=== PATIENT | female | born 1955 | race African-American/Black ===

== ENCOUNTER → 2016-11-02 | Outpatient (CLI) | payer MEDICARE, MEDICAID ==
[~2016-11-02] MED LIST: AMANTADINE100 MG PO; AMBIEN5 MG PO; ARTANE2 MG PO; ATENOLOL50 MG PO; CLARITIN10 MG PO; CLOPIDOGREL; DARVOCET-N-101 UDTAB PO; FAMVIR 500500 MG/TAB PO; FLEXERIL 1010 MG/TAB PO; HCTZ 25MG TAB25 MG PO; HCTZ 25MG25 MG PO; KCL 20 MEQ; KLONOPIN 1MG1 MG PO; KLONOPIN0.5 MG PO; KLOR-CON M2020 MEQ PO; LEVOXYL0.025 MG; LISINOPRIL; LISINOPRIL10 MG PO; MASON NATURAL1000 MG; NAPROSYN 2250 MG/TAB PO; NAPROXEN 3375 MG/TAB PO; NAVANE; NAVANE1 MG PO; NAVANE5 MG PO; NORCO 325 MG-51 TAB PO; PERCOCET 325 MG1 TA2 PO; PLAVIX 75MG TAB75 MG PO; POTASSIUM CL 220 MEQ PO; POTASSIUM20 MEQ PO; PREDNISONE10 MG PO; PRINIVIL10 MG PO; SENORMIN50 MG PO; SYMMETREL50 MG/5 ML PO; TENORMIN 5050 MG/TAB PO; TRIHEXYPHENIDYL; VALIUM 5MG T5 MG/TAB PO; VENTOLIN0.09 MG IH; ZESTRIL 10MG10 MG PO; ZITHROMAX Z PA250 MG PO; [UNRECOGNIZED DRUG - REMARK]
== END ==
LOC: COL.RAD 12:19
DX: D17.21 Benign lipomatous neoplasm of skin and subcutaneous tissue of right arm (principal)

== ENCOUNTER 2017-06-06 10:49 | Emergency (ER) | payer MEDICARE, MEDICAID ==
[~2017-06-06] VITALS: Ht 157.5 cm; Wt 86.4 kg
[~2017-06-06 10:49] MED LIST changes: -FLEXERIL 1010 MG/TAB PO
[2017-06-06 11:13] VITALS: BP 176/86; PULSE 60; TEMP 98.1
[2017-06-06 12:03] LABS: BASO % 0.4 % (0.0-2.0); EOS # 0.1 (0.0-0.7); EOS % 1.2 % (0-4.0); GRAN # 4.8 (1.4-6.5); GRAN % 61.9 % (42.2-75.2); HEMATOCRIT 40.8 % (37.0-47.0); HEMOGLOBIN 13.1 g/dl (12.5-16.0); LYMPH # 2.3 (1.2-3.4); LYMPH % 30.2 % (20.0-51.0); MEAN CELL VOLUME 87 fl (80.0-100.0); MEAN CORPUSCULAR HEMOGLOBIN 28 pg (27.0-31.0); MEAN CORPUSCULAR HGB CONC 32 g/dl (33.0-37.0); MEAN PLATELET VOLUME 12.4 fl (7.4-10.4); MONO # 0.5 (0.1-0.6); PLATELET COUNT 242 K/mm3 (130-400); RED BLOOD COUNT 4.71 M/mm3 (4.10-5.30); REDCELL DISTRIBUTION WIDTH-CV 14.6 % (11.5-14.5); WHITE BLOOD COUNT 7.7 K/mm3 (4.8-10.8)
[2017-06-06] MEDS ORDERED: FLEXERIL 1010 MG/TAB PO (12:20)
[2017-06-06 12:34] LABS: ERYTHROCYTE SEDIMENTATION RATE 21 mm/hr (0-30)
== END 2017-06-06 12:42 | disposition home or self-care (01) ==
LOC: COL.ER 10:49
PROVIDERS: Physician Assistant
DX: M54.2 Cervicalgia (principal); M25.511 Pain in right shoulder; I10 Essential (primary) hypertension; E03.9 Hypothyroidism, unspecified

== ENCOUNTER 2017-07-01 09:39 | Inpatient (IN) | payer MEDICARE, MEDICAID ==
[~2017-07-01] VITALS: Ht 162.6 cm; Wt 86.7 kg
[~2017-07-01 09:39] MED LIST changes: +ASPIRIN 81M81 MG/TA2 PO; +FLEXERIL 1010 MG/TAB PO; +GLUCOPHAGE500 MG/TAB PO; -LEVOXYL0.025 MG; +LEVOXYL0.05 MG PO; +LIPITOR 80MG80 MG PO; +NEURONTIN300 MG/CAP PO; +TENORMIN100 MG PO; +ZESTRIL 20MG TA20 MG PO
[2017-07-01 12:06] VITALS: BP 166/67; PULSE 66; TEMP 97.7
[2017-07-01] MEDS ORDERED: ROCEPHIN VIA1 G/VIAL IV (12:20)
[2017-07-01] MEDS ORDERED: NS 10ML VIAL 1010 ML IV ×2 (12:25→12:53)
[2017-07-01] MEDS ORDERED: NOVOLOG 100U100 U/M1 SQ (12:46)
[2017-07-01] MEDS ORDERED: MAG-OX 400400 MG/TAB PO (12:47)
[2017-07-01] MEDS ORDERED: TRANDATE5 MG/ML IV (12:53)
[2017-07-01] MEDS ORDERED: APRESOLINE 10MG10 MG PO (13:21)
[2017-07-01 18:00] VITALS: BP 133/71; PULSE 60; TEMP 98.1
[2017-07-02 05:12] VITALS: BP 155/61; PULSE 56; TEMP 98.1
[2017-07-02 07:20] LABS: BASO % 0.5 % (0.0-2.0); EOS # 0.2 (0.0-0.7); EOS % 1.9 % (0-4.0); GRAN # 5.1 (1.4-6.5); HEMATOCRIT 44.1 % (37.0-47.0); HEMOGLOBIN 13.9 g/dl (12.5-16.0); LYMPH # 2.8 (1.2-3.4); LYMPH % 32.1 % (20.0-51.0); MEAN CELL VOLUME 89 fl (80.0-100.0); MEAN CORPUSCULAR HEMOGLOBIN 28 pg (27.0-31.0); MEAN CORPUSCULAR HGB CONC 32 g/dl (33.0-37.0); MEAN PLATELET VOLUME 12.3 fl (7.4-10.4); MONO # 0.6 (0.1-0.6); MONO % 6.4 % (1.7-9.3); PLATELET COUNT 231 K/mm3 (130-400); RED BLOOD COUNT 4.95 M/mm3 (4.10-5.30); REDCELL DISTRIBUTION WIDTH-CV 14.9 % (11.5-14.5); WHITE BLOOD COUNT 8.6 K/mm3 (4.8-10.8)
[2017-07-02 07:22] LABS: CALCIUM 10.2 mg/dL (8.4-10.2); CREATININE, serum 1.3 mg/dL (0.52-1.25); MAGNESIUM 1.7 mg/dL (1.6-2.3); POTASSIUM 3.8 mmol/L (3.4-5.0)
[2017-07-02 15:43] VITALS: BP 152/61; PULSE 58; TEMP 97.1
[2017-07-03 03:31] VITALS: BP 137/59; PULSE 64; TEMP 97.1
[2017-07-03 16:09] VITALS: BP 141/82; PULSE 62; TEMP 97.6
[2017-07-04 05:14] VITALS: BP 158/74; PULSE 61; TEMP 98.2
[2017-07-04 16:43] VITALS: BP 143/82; PULSE 60; TEMP 98
[2017-07-05 04:48] VITALS: BP 149/81; PULSE 61; TEMP 98.2
[2017-07-05 07:11] LABS: BASO % 0.5 % (0.0-2.0); EOS # 0.2 (0.0-0.7); EOS % 2.5 % (0-4.0); GRAN # 4.8 (1.4-6.5); GRAN % 60.7 % (42.2-75.2); HEMOGLOBIN 12.4 g/dl (12.5-16.0); LYMPH # 2.3 (1.2-3.4); LYMPH % 28.6 % (20.0-51.0); MEAN CELL VOLUME 89 fl (80.0-100.0); MEAN CORPUSCULAR HEMOGLOBIN 28 pg (27.0-31.0); MEAN CORPUSCULAR HGB CONC 32 g/dl (33.0-37.0); MEAN PLATELET VOLUME 12.5 fl (7.4-10.4); MONO # 0.6 (0.1-0.6); MONO % 7.4 % (1.7-9.3); PLATELET COUNT 230 K/mm3 (130-400); RED BLOOD COUNT 4.36 M/mm3 (4.10-5.30); REDCELL DISTRIBUTION WIDTH-CV 14.7 % (11.5-14.5); WHITE BLOOD COUNT 7.9 K/mm3 (4.8-10.8)
[2017-07-05 07:23] LABS: CALCIUM 9.4 mg/dL (8.4-10.2); CREATININE, serum 1.22 mg/dL (0.52-1.25); POTASSIUM 3.8 mmol/L (3.4-5.0)
[2017-07-05 18:48] VITALS: BP 149/67; PULSE 61; TEMP 98
[2017-07-06 05:59] VITALS: BP 131/67; PULSE 64; TEMP 98.4
[2017-07-06] MEDS ORDERED: LIPITOR 80MG80 MG PO (14:47)
[2017-07-06] MEDS ORDERED: TENORMIN100 MG PO (14:47)
[2017-07-06] MEDS ORDERED: PLAVIX 75MG TAB75 MG PO (14:47)
[2017-07-06] MEDS ORDERED: KLOR-CON M2020 MEQ PO (14:48)
[2017-07-06] MEDS ORDERED: MAG-OX 400400 MG/TAB PO (14:49)
[2017-07-06] MEDS ORDERED: HCTZ 25MG TAB25 MG PO (14:49)
[2017-07-06] MEDS ORDERED: LEVOXYL0.05 MG PO (14:50)
[2017-07-06] MEDS ORDERED: GLUCOPHAGE500 MG/TAB PO (14:51)
== END 2017-07-06 16:00 | disposition home health service (06) | DRG 57 ==
PROVIDERS: Internal Medicine; Nurse Practitioner Family
DX: I69.322 Dysarthria following cerebral infarction (principal); N39.0 Urinary tract infection, site not specified; I69.391 Dysphagia following cerebral infarction; R13.12 Dysphagia, oropharyngeal phase; I10 Essential (primary) hypertension; E11.9 Type 2 diabetes mellitus without complications; Z79.4 Long term (current) use of insulin; F17.210 Nicotine dependence, cigarettes, uncomplicated; B96.20 Unspecified Escherichia coli [E. coli] as the cause of diseases classified elsewhere
CPT/HCPCS: 99222-AI; 99232-AI; 99239; J0696; J1650; J1815

== ENCOUNTER → 2018-03-17 | Outpatient (CLI) | payer MEDICARE, MEDICAID ==
[~2018-03-17] MED LIST changes: +APRESOLINE 10MG10 MG PO; +MAG-OX 400400 MG/TAB PO; +NOVOLOG 100U100 U/M1 SQ; +NS 10ML VIAL 1010 ML IV; +ROCEPHIN VIA1 G/VIAL IV; +TRANDATE5 MG/ML IV
== END ==
LOC: SUN.DIA 01-21 15:34
DX: E11.22 Type 2 diabetes mellitus with diabetic chronic kidney disease (principal); E11.40 Type 2 diabetes mellitus with diabetic neuropathy, unspecified; I12.9 Hypertensive chronic kidney disease with stage 1 through stage 4 chronic kidney disease, or unspecified chronic kidney disease; N18.9 Chronic kidney disease, unspecified; Z79.4 Long term (current) use of insulin; E66.9 Obesity, unspecified; Z68.34 Body mass index [BMI] 34.0-34.9, adult; Z71.3 Dietary counseling and surveillance; Z87.891 Personal history of nicotine dependence
CPT/HCPCS: G0108

== ENCOUNTER → 2018-04-03 | Outpatient (CLI) | payer MEDICARE, MEDICAID | LOC: SUN.DIA 08:54 | DX: E11.40 Type 2 diabetes mellitus with diabetic neuropathy, unspecified (principal); E11.22 Type 2 diabetes mellitus with diabetic chronic kidney disease; N18.9 Chronic kidney disease, unspecified; Z79.4 Long term (current) use of insulin; I10 Essential (primary) hypertension; E66.9 Obesity, unspecified; Z68.34 Body mass index [BMI] 34.0-34.9, adult; Z71.3 Dietary counseling and surveillance; Z87.891 Personal history of nicotine dependence ==

== ENCOUNTER → 2018-04-23 | Outpatient (CLI) | payer MEDICARE, MEDICAID | LOC: SUN.DIA 10:59 | DX: E11.40 Type 2 diabetes mellitus with diabetic neuropathy, unspecified (principal); I10 Essential (primary) hypertension; E66.9 Obesity, unspecified; F17.210 Nicotine dependence, cigarettes, uncomplicated ==

== ENCOUNTER → 2018-07-16 | Outpatient (CLI) | payer MEDICARE, MEDICAID | LOC: SUN.DIA 09:29 | DX: E11.40 Type 2 diabetes mellitus with diabetic neuropathy, unspecified (principal); I10 Essential (primary) hypertension; E66.9 Obesity, unspecified; F17.210 Nicotine dependence, cigarettes, uncomplicated | CPT/HCPCS: G0270 ==

== ENCOUNTER → 2018-10-29 | Outpatient (CLI) | payer MEDICARE, MEDICAID | LOC: SUN.DIA 10-15 16:22 | DX: E11.40 Type 2 diabetes mellitus with diabetic neuropathy, unspecified (principal); I10 Essential (primary) hypertension; E66.9 Obesity, unspecified; Z79.4 Long term (current) use of insulin; F17.210 Nicotine dependence, cigarettes, uncomplicated ==

== ENCOUNTER 2019-04-24 00:03 | Emergency (ER) | payer MEDICARE, MEDICAID ==
[~2019-04-24] VITALS: Ht 162.6 cm; Wt 88.6 kg
[2019-04-24 00:06] VITALS: PULSE 88; TEMP 97.7
[2019-04-24] MEDS ORDERED: JANUVIA 100MG100 MG PO (00:34)
[2019-04-24] MEDS ORDERED: SYNTHROID0.112 MG/T PO (00:35)
[2019-04-24] MEDS ORDERED: BASAGLAR K100 UNIT/1 SQ (00:35)
[2019-04-24 00:51] LABS: BASO % 0.3 % (0.0-2.0); EOS # 0.1 (0.0-0.7); EOS % 1.1 % (0-4.0); GRAN # 10.1 (1.4-6.5); GRAN % 75.9 % (42.2-75.2); HEMATOCRIT 38.6 % (37.0-47.0); HEMOGLOBIN 12.3 g/dl (12.5-16.0); LYMPH # 2.2 (1.2-3.4); LYMPH % 16.3 % (20.0-51.0); MEAN CELL VOLUME 87 fl (80.0-100.0); MEAN CORPUSCULAR HEMOGLOBIN 28 pg (27.0-31.0); MEAN CORPUSCULAR HGB CONC 32 g/dl (33.0-37.0); MEAN PLATELET VOLUME 11.6 fl (7.4-10.4); MONO # 0.8 (0.1-0.6); MONO % 6.1 % (1.7-9.3); PLATELET COUNT 274 K/mm3 (130-400); RED BLOOD COUNT 4.43 M/mm3 (4.10-5.30)
[2019-04-24 01:06] LABS: C-REACTIVE PROTEIN 0.9 mg/dL (0.0-0.9)
[2019-04-24 01:18] LABS: URIC ACID 4.5 mg/dL (2.5-6.2)
[2019-04-24 02:57] VITALS: BP 225/115
[2019-04-24] MEDS ORDERED: VOLTAREN GEL 1%1 TU TP (03:14)
== END 2019-04-24 04:15 | disposition home or self-care (01) ==
LOC: COL.ER 00:03
PROVIDERS: Nurse Practitioner
DX: M25.531 Pain in right wrist (principal); M79.89 Other specified soft tissue disorders; E03.9 Hypothyroidism, unspecified; F32.9 Major depressive disorder, single episode, unspecified; E78.5 Hyperlipidemia, unspecified; E11.9 Type 2 diabetes mellitus without complications; Z79.4 Long term (current) use of insulin; Z86.73 Personal history of transient ischemic attack (TIA), and cerebral infarction without residual deficits; Z88.5 Allergy status to narcotic agent; Z79.82 Long term (current) use of aspirin; Z79.02 Long term (current) use of antithrombotics/antiplatelets

== ENCOUNTER 2019-05-07 12:38 | Inpatient (IN) | payer MEDICARE, MEDICAID ==
[2019-05-07] VITALS (106 sets, daily range): BP systolic 108; BP diastolic 94; PULSE 75; TEMP 97.6; O2SAT 90–96
[~2019-05-07] VITALS: Ht 162.6 cm; Wt 93.0 kg
[~2019-05-07 12:38] MED LIST changes: +BASAGLAR K100 UNIT/1 SQ; +JANUVIA 100MG100 MG PO; +SYNTHROID0.112 MG/T PO; +VOLTAREN GEL 1%1 TU TP
[2019-05-07 13:26] LABS: BASO # 0.1 (0.0-0.2); BASO % 0.5 % (0.0-2.0); EOS # 0.2 (0.0-0.7); EOS % 2.3 % (0-4.0); GRAN # 5.6 (1.4-6.5); GRAN % 54.4 % (42.2-75.2); HEMOGLOBIN 11.7 g/dl (12.5-16.0); LYMPH # 3.5 (1.2-3.4); LYMPH % 34.2 % (20.0-51.0); MEAN CELL VOLUME 89 fl (80.0-100.0); MEAN CORPUSCULAR HEMOGLOBIN 28 pg (27.0-31.0); MEAN CORPUSCULAR HGB CONC 31 g/dl (33.0-37.0); MEAN PLATELET VOLUME 11.7 fl (7.4-10.4); MONO # 0.9 (0.1-0.6); MONO % 8.4 % (1.7-9.3); PLATELET COUNT 286 K/mm3 (130-400); RED BLOOD COUNT 4.25 M/mm3 (4.10-5.30); REDCELL DISTRIBUTION WIDTH-CV 15.1 % (11.5-14.5)
[2019-05-07 13:27] LABS: PROTHROMBIN TIME 11.4 SECONDS (9.7-12.8)
[2019-05-07 13:31] LABS: ALANINE AMINOTRANSFERASE < 6 U/L (9-52); ALBUMIN 4.4 gm/dL (3.5-5.0); ALKALINE PHOSPHATASE 120 U/L (50-136); ANION GAP 14 mmol/L (7-16); AST,SGOT 32 U/L (15-37); BILIRUBIN,TOTAL 0.5 mg/dL (0.0-1.0); BLOOD UREA NITROGEN 23 mg/dL (7-17); CALCIUM 9.3 mg/dL (8.4-10.2); CARBON DIOXIDE 29 mmol/L (22-30); CHLORIDE 100 mmol/L (98-107); CREATININE, serum 1.69 (0.52-1.25); GLUCOSE 191 mg/dL (74-106); POTASSIUM 4.1 mmol/L (3.4-5.0); SODIUM 143 mmol/L (137-145); TOTAL PROTEIN 9.3 gm/dL (6.4-8.2)
[2019-05-07 13:45] LABS: TROPONIN-I < 0.012 ng/mL (0.000-0.035)
[2019-05-07] MEDS ORDERED: PREDNISONE20 MG PO (15:03)
[2019-05-07] MEDS ORDERED: DOXYCYCLINE 10100 MG PO (15:03)
--- NOTE | 2019-05-07 21:57 | NUR ---
Report called over by MOSHE Higginbotham in the ED. patient will be brought over shortly
--- NOTE | 2019-05-07 22:07 | NUR ---
Patient arrives at this time via ED cart. Patient transfers to unit bed with assistance of one to help steady her. She normally walks with a wheeled walker. Patient attached to unit monitoring equipment. Patient is alert and oriented and following commands. Assessment complete. Assessment reveals audible wheezing from across the room on expiration. Lungs are clear to auscultation with diminished bases. Wheezing is larygneal. No complaints of pain or SOB. HR and rhythm are regular with normal S1 and S2. Bowel sounds are active x4. Patient's pulses are palpable in all extremities. Admission assessment complete. 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 Oriented patient to unit, room, and call light. Assisted her with calling her son to update on her location. No further needs at this time. Will continue to monitor. Call light within reach.
[2019-05-07 22:30] LABS: ARTERIAL BLD GAS O2 SATURATION 92.8 % (92-100); ARTERIAL BLD GAS TCO2 CT 20.7; ARTERIAL BLOOD GAS BASE EXCESS -5.5 (-2-2); ARTERIAL BLOOD GAS HCO3 19.5 meq/L (22-26); ARTERIAL BLOOD GAS PCO2 36.7 mmHg (35-45); ARTERIAL BLOOD GAS PO2 70.3 mmHg (80-100); ARTERIAL BLOOD GAS pH 7.34 (7.35-7.45)
[2019-05-08] VITALS (917 sets, daily range): BP systolic 117–142; BP diastolic 64–93; PULSE 68–80; TEMP 97.6–98.6; O2SAT 78–100
--- NOTE | 2019-05-08 | NUR ---
Patient awake and watching TV. No complaints or signs of distress. She continues to have some wheezing which worsens when she stands, but it has improved since her arrival. Vitals obtained and remain stable. Patient has no further needs at this time. Will continue to monitor. Call light within reach.
--- NOTE | 2019-05-08 03:45 | NUR ---
Patient awake and has been incontinent of urine. Obtained a new brief for patient and assisted up to the bedside commode. Patient cleans herself up with cleansing wipes. New gown provided and bedding. Patient has no complaints of pain or SOB. Patient's wheezing has stopped. She has no further needs at this time. Will continue to monitor. Call light within reach.
[2019-05-08 05:06] LABS: BASO % 0.1 % (0.0-2.0); GRAN # 9.6 (1.4-6.5); HEMOGLOBIN 10.6 g/dl (12.5-16.0); LYMPH # 1.6 (1.2-3.4); LYMPH % 13.8 % (20.0-51.0); MEAN CELL VOLUME 88 fl (80.0-100.0); MEAN CORPUSCULAR HEMOGLOBIN 28 pg (27.0-31.0); MEAN CORPUSCULAR HGB CONC 31 g/dl (33.0-37.0); MEAN PLATELET VOLUME 11.3 fl (7.4-10.4); MONO # 0.1 (0.1-0.6); MONO % 0.7 % (1.7-9.3); PLATELET COUNT 276 K/mm3 (130-400); RED BLOOD COUNT 3.86 M/mm3 (4.10-5.30); REDCELL DISTRIBUTION WIDTH-CV 15.1 % (11.5-14.5)
[2019-05-08 05:22] LABS: CALCIUM 8.4 mg/dL (8.4-10.2); CREATININE, serum 1.63 (0.52-1.25); POTASSIUM 4.2 mmol/L (3.4-5.0)
--- NOTE | 2019-05-08 07:20 | NUR ---
Bedside shift report received from MOSHE Steel. Patient is awake, alert, and responds appropriately. Assessment completed. Vital signs stable. Patient has no complaints or concerns at this time. Call light placed within reach. Bed in lowest position. Side rails up x3.
--- NOTE | 2019-05-08 07:42 | NUR ---
Bedside report given to MOSHE Duran
--- NOTE | 2019-05-08 13:03 | NUR ---
SW attended clinical rounds to discuss discharge planning. Patient lives at home and has a caregiver from [place]. Patient's son, Chaitanya, lives close by as well. Patient's PCP is Dr Rosas and she obtains prescriptions from [facility] pharmacy. Patient reports her medications are mailed to her house. Patient uses a walker for ambulation. Patient does not have any home health services outside of her caregiver from [place]. Patient will be seen by PT, OT and Speech for eval. SW will follow up after those evaluations are completed. Patient will transfer upstairs today. SW will continue to follow.
[2019-05-08] MEDS ORDERED: JANUVIA50 MG PO (15:16)
--- NOTE | 2019-05-08 16:32 | NUR ---
Patient will discharge home today. Therapy recommended home health services. TRINI met with patient about home health choice. SW provided medicare.gov resource list. Patient reports she has used [facility] in the past and would like to use them again. TRINI contacted [facility] and faxed referral and discharge orders.
--- NOTE | 2019-05-08 17:19 | NUR ---
Patient educated on discharge instructions, follow up appointments, and current health status. Patient has no complaints or concerns at this time. INT discontinued. Patient assisted with getting dressed.
--- NOTE | 2019-05-08 17:32 | NUR ---
Patient escorted to ER entrance to be picked up by her son, Will by MOSHE Leal with no complications.
== END 2019-05-08 18:47 | disposition home health service (06) | DRG 915 ==
LOC: COL.ER 12:38 → ICU 18:01
PROVIDERS: Emergency Medicine
DX: T78.3XXA Angioneurotic edema, initial encounter (principal); J96.01 Acute respiratory failure with hypoxia; N17.9 Acute kidney failure, unspecified; J38.3 Other diseases of vocal cords; T46.4X5A Adverse effect of angiotensin-converting-enzyme inhibitors, initial encounter; E11.22 Type 2 diabetes mellitus with diabetic chronic kidney disease; T38.0X5A Adverse effect of glucocorticoids and synthetic analogues, initial encounter; E66.9 Obesity, unspecified; I12.9 Hypertensive chronic kidney disease with stage 1 through stage 4 chronic kidney disease, or unspecified chronic kidney disease; N18.9 Chronic kidney disease, unspecified; E11.65 Type 2 diabetes mellitus with hyperglycemia; E89.0 Postprocedural hypothyroidism; I69.993 Ataxia following unspecified cerebrovascular disease; E78.5 Hyperlipidemia, unspecified; Z79.890 Hormone replacement therapy; Z79.02 Long term (current) use of antithrombotics/antiplatelets; Z79.4 Long term (current) use of insulin; Z79.82 Long term (current) use of aspirin; Z79.52 Long term (current) use of systemic steroids; Z87.891 Personal history of nicotine dependence; Z68.35 Body mass index [BMI] 35.0-35.9, adult
CPT/HCPCS: 99223-AI; 99239; J1650; J1815; J2060; J2930; J3475; J7030; Q9967

== ENCOUNTER → 2019-05-11 | Outpatient (CLI) | payer MEDICARE, MEDICAID ==
[~2019-05-11] MED LIST changes: +DOXYCYCLINE 10100 MG PO; +JANUVIA50 MG PO; +PREDNISONE20 MG PO
[2019-05-11 11:12] LABS: CALCIUM 9.2 mg/dL (8.4-10.2); CREATININE, serum 1.3 (0.52-1.25); POTASSIUM 3.5 mmol/L (3.4-5.0)
== END ==
LOC: COL.LAB 10:17
PROVIDERS: Nurse Practitioner Family
DX: N17.9 Acute kidney failure, unspecified (principal)

== ENCOUNTER 2021-01-19 13:06 | Emergency (ER) | payer MEDICARE, MEDICAID ==
[~2021-01-19] VITALS: Ht 162.6 cm; Wt 86.4 kg
[2021-01-19 13:08] VITALS: TEMP 98.8
[2021-01-19 13:48] LABS: BASO % 0.2 % (0.0-2.0); EOS # 0.1 (0.0-0.7); EOS % 0.9 % (0-4.0); GRAN # 7.5 (1.4-6.5); GRAN % 70.6 % (42.2-75.2); HEMATOCRIT 40.5 % (37.0-47.0); HEMOGLOBIN 13.5 g/dl (12.5-16.0); LYMPH # 2.1 (1.2-3.4); LYMPH % 20.1 % (20.0-51.0); MEAN CELL VOLUME 86 fl (80.0-100.0); MEAN CORPUSCULAR HEMOGLOBIN 29 pg (27.0-31.0); MEAN CORPUSCULAR HGB CONC 33 g/dl (33.0-37.0); MEAN PLATELET VOLUME 12.7 fl (7.4-10.4); MONO # 0.8 (0.1-0.6); PLATELET COUNT 201 K/mm3 (130-400); REDCELL DISTRIBUTION WIDTH-CV 13.3 % (11.5-14.5)
[2021-01-19 13:57] LABS: CALCIUM 8.9 mg/dL (8.4-10.2); CREATININE, serum 1.28 (0.52-1.25)
[2021-01-19 14:11] LABS: POTASSIUM 2.6 mmol/L (3.4-5.0)
[2021-01-19 16:30] VITALS: BP 141/81; PULSE 70
== END 2021-01-19 16:30 | disposition home or self-care (01) ==
LOC: COL.ER 13:06
PROVIDERS: Family Medicine
DX: E87.6 Hypokalemia (principal); I10 Essential (primary) hypertension; E78.5 Hyperlipidemia, unspecified; E05.90 Thyrotoxicosis, unspecified without thyrotoxic crisis or storm; E11.9 Type 2 diabetes mellitus without complications; E66.9 Obesity, unspecified; Z68.35 Body mass index [BMI] 35.0-35.9, adult; Z79.4 Long term (current) use of insulin; Z88.5 Allergy status to narcotic agent; Z79.82 Long term (current) use of aspirin; Z79.02 Long term (current) use of antithrombotics/antiplatelets; Z79.899 Other long term (current) drug therapy
CPT/HCPCS: J3480; J7030; J7120

== ENCOUNTER 2021-07-14 10:21 | Day surgery (SDC) | payer MEDICARE, MEDICAID ==
[~2021-07-14] VITALS: Ht 162.6 cm; Wt 89.5 kg
[2021-07-14] MEDS ORDERED: BASAGLAR K100 UNIT/1 (12:22)
[2021-07-14] MEDS ORDERED: HUMALOG100 U/ML SQ (12:22)
[2021-07-14] MEDS ORDERED: ULTRAM 50MG TAB50 MG PO (12:26)
[2021-07-14 12:56] VITALS: BP 157/80; PULSE 66; TEMP 97.8
[2021-07-14 16:05] VITALS: TEMP 98.6
--- NOTE | 2021-07-14 16:15 | NUR ---
Patient arrived on cart from PACU escorted by MOSHE Gamboa. Patient is alert and oriented x3. She is tolerating water well and requested buttered toast as a snack. Son, Wei who is driving her home has been contacted. Vitals obtained. Call anne is in her hand. Will continue to monitor
[2021-07-14 16:30] VITALS: BP 155/67; PULSE 69
--- NOTE | 2021-07-14 16:30 | NUR ---
Patient expressed desire to use the bathroom. Ambulated to BR with +2 assist by RN's. Patient's gait was unsteady, however she successfully ambulated to the BR. Vital signs obtained. Patient expressed difficulty voiding, requested water and wanted to stay for another attempt. Will continue to monitor. Patient has red cord in her hand.
[2021-07-14 16:45] VITALS: BP 157/66; PULSE 72
[2021-07-14 17:00] VITALS: BP 146/83; PULSE 96
--- NOTE | 2021-07-14 17:00 | NUR ---
Patient ambulated to with +1 assist by RN. Patient was able to void successfully. Requested assistance changing. Discharge insturctions were reviewed at this time. Patient verbalized understanding and stated no further questions or concerns. Patients son left first to move car from the Admissions parking lot to ED entrence. IV discontinued due to discharge. Catheter tip intact. No redness or swelling noted. Pressure dressing applied. Patient was assited into her sling and wore it out.
--- NOTE | 2021-07-14 17:35 | NUR ---
Patient was escorted out via wheelchair to ED entrence by MOSHE Mo. Patient has her belongings and her discharge paperwork. She was transferred into the care of her son at this time, who is driving her home.
== END 2021-07-14 17:35 | disposition home or self-care (01) ==
LOC: SDCO 10:21
DX: G56.21 Lesion of ulnar nerve, right upper limb (principal); R20.2 Paresthesia of skin; E11.9 Type 2 diabetes mellitus without complications; I63.9 Cerebral infarction, unspecified; I10 Essential (primary) hypertension
CPT/HCPCS: J0690; J1720; J2405; J2704; J3010; J7030

== ENCOUNTER 2021-09-08 09:10 | Day surgery (SDC) | payer MEDICARE, MEDICAID ==
[~2021-09-08 09:10] MED LIST changes: +BASAGLAR K100 UNIT/1; +HUMALOG100 U/ML SQ; +ULTRAM 50MG TAB50 MG PO
--- NOTE | 2021-09-08 09:54 | NUR ---
Pt arrived via ambulation. After taken to [facility], BG checked. BG 385. Pt reports not taking insulin prior to procedure per instruction. Reports she also used regular gatorade for her prep. Dr Riggins and anesthesia provider, Pascual Peterson, UTILITY TRACTOR OPERATOR notified and chose to cancel the procedures for this pt today. Pt notified and dressing. Pts friend called but VM reached. LM that pt is ready for ride home.
--- NOTE | 2021-09-08 12:25 | NUR ---
After multiple messages left for pts ride home, no return call was received. Pts son notified and to potato picker pt and take her home. Pt taken via wheelchair to Patients Entrance to await ride.
== END 2021-09-08 12:27 | disposition home or self-care (01) ==
LOC: SDCO 09:10
DX: Z12.11 Encounter for screening for malignant neoplasm of colon (principal); Z53.8 Procedure and treatment not carried out for other reasons; I12.9 Hypertensive chronic kidney disease with stage 1 through stage 4 chronic kidney disease, or unspecified chronic kidney disease; N18.30 Chronic kidney disease, stage 3 unspecified; E11.42 Type 2 diabetes mellitus with diabetic polyneuropathy; E11.22 Type 2 diabetes mellitus with diabetic chronic kidney disease; E78.5 Hyperlipidemia, unspecified; E66.01 Morbid (severe) obesity due to excess calories; E03.9 Hypothyroidism, unspecified; E78.2 Mixed hyperlipidemia; F32.A Depression, unspecified; Z68.34 Body mass index [BMI] 34.0-34.9, adult; Z86.73 Personal history of transient ischemic attack (TIA), and cerebral infarction without residual deficits; Z90.49 Acquired absence of other specified parts of digestive tract; Z79.82 Long term (current) use of aspirin; Z79.899 Other long term (current) drug therapy; Z86.16 Personal history of COVID-19

== ENCOUNTER 2022-03-02 08:56 | Day surgery (SDC) | payer MEDICARE, MEDICAID ==
[~2022-03-02] VITALS: Ht 162.6 cm; Wt 82.2 kg
[2022-03-02] MEDS ORDERED: NEURONTIN300 MG/CAP PO (09:15)
[2022-03-02 09:23] VITALS: BP 156/85; PULSE 64; TEMP 97.2
[2022-03-02 10:30] VITALS: BP 143/80; PULSE 57; TEMP 97.4
--- NOTE | 2022-03-02 10:30 | NUR ---
PATIENT ARRIVES TO ROOM 1 VIA CART. ASSIST TO CHAIR X 1. SHE IS ALERT AND ORIENTED, VITAL SIGNS ARE WNL. SHE REQUESTS A MUFFIN AND A COKE. SON IS AT BEDSIDE. WILL CONTINUE TO MONITOR.
[2022-03-02 10:45] VITALS: BP 145/78; PULSE 54
--- NOTE | 2022-03-02 10:45 | NUR ---
PATIENT IS FEELING GOOD. SHE ATE HER MUFFIN AND DRANK HER COKE AND DOES NOT HAVE ANY NAUSEA. SHE HAS NOT SEEN THE DOCTOR YET. I LET HER KNOW SHE WILL BE READY TO DISCHARGE SOON THE DOCTOR IS IN TO SEE HER. WILL CONTINUE TO MONITOR.
[2022-03-02 11:00] VITALS: BP 140/85; PULSE 55
--- NOTE | 2022-03-02 11:00 | NUR ---
PATIENT IS AWAKE AND ORIENTED, READY FOR DISCHARGE. DOCTOR JUST CAME IN AND SPOKE WITH HER. IV DISCONTINUED, SON IS AT BEDSIDE. PATIENT IS GETTING DRESSED AND WILL BE WHEELED DOWNSTAIRS SOON SHE IS READY TO GO.
== END 2022-03-02 11:30 | disposition home or self-care (01) ==
LOC: SDCO 08:56
DX: Z12.11 Encounter for screening for malignant neoplasm of colon (principal); D12.3 Benign neoplasm of transverse colon
CPT/HCPCS: J2704; J3010; J7030

== ENCOUNTER 2022-05-14 13:18 | Emergency (ER) | payer MEDICARE, MEDICAID ==
[~2022-05-14] VITALS: Ht 162.6 cm; Wt 85.0 kg
[2022-05-14 13:19] VITALS: TEMP 98.9
[2022-05-14 13:48] LABS: BASO % 0.2 % (0.0-2.0); EOS # 0.1 K/mm3 (0.0-0.7); EOS % 0.4 % (0.0-4.0); GRAN # 10.9 K/mm3 (1.4-6.5); GRAN % 76.8 % (42.2-75.2); HEMATOCRIT 39.9 % (37.0-47.0); HEMOGLOBIN 13.1 g/dl (12.5-16.0); LYMPH # 2.2 K/mm3 (1.2-3.4); LYMPH % 15.7 % (20.0-51.0); MEAN CELL VOLUME 87 fl (80.0-100.0); MEAN CORPUSCULAR HEMOGLOBIN 29 pg (27-31); MEAN CORPUSCULAR HGB CONC 33 g/dl (33.0-37.0); MEAN PLATELET VOLUME 11.8 fl (7.4-10.4); MONO # 0.9 K/mm3 (0.1-0.6); MONO % 6.6 % (1.7-9.3); PLATELET COUNT 212 K/mm3 (130-400); REDCELL DISTRIBUTION WIDTH-CV 13.4 % (11.5-14.5)
[2022-05-14 14:05] LABS: ALBUMIN 3.4 gm/dL (3.4-4.8); BILIRUBIN,TOTAL 0.3 mg/dL (0.2-1.2); CALCIUM 9.2 mg/dL (8.4-10.2); CREATININE, serum 1.37 mg/dL (0.57-1.11); POTASSIUM 3.7 mmol/L (3.5-4.5); TOTAL PROTEIN 7.8 gm/dL (6.2-8.1)
[2022-05-14 16:19] VITALS: BP 166/97; PULSE 66
== END 2022-05-14 16:20 | disposition home or self-care (01) ==
LOC: COL.ER 13:18
PROVIDERS: Nurse Practitioner
DX: M25.552 Pain in left hip (principal); E11.65 Type 2 diabetes mellitus with hyperglycemia; Z88.5 Allergy status to narcotic agent; Z28.310 Unvaccinated for COVID-19
CPT/HCPCS: J7030